=== PATIENT | male | born 1960 | race Caucasian/White ===

== ENCOUNTER 2017-06-05 14:16 | Emergency (ER) | payer OTHER ==
[2017-06-05] MEDS ORDERED: Diphtheria/Tetanus Toxoids,Adult (Td) 0.5 ML SDV ONE (14:30)
[2017-06-05] MEDS ORDERED: Diphtheria,Pertussis(Acell),Tetanus Vaccine 0.5 ML SDV inactive IM ONE (15:31)
--- NOTE | 2017-06-05 17:58 | EDM.PDOC ---
ED HPI GENERAL MEDICAL PROBLEM - General Chief Complaint: General Stated Complaint: FISH HOOK REMOVAL Time Seen by Provider: 06/05/17 15:30 Source of Information: Reports: Patient History Limitations: Reports: No Limitations - History of Present Illness INITIAL COMMENTS - FREE TEXT/NARRATIVE: Pt was ice fishing today. Caught a fish and was trying to pull the fish hook and the fish wiggled and the hook got stuck into his left index finger. Pt did try to pull the hook and could not get it out, hence came into emergency room. Mild pain in the finger. no excessive bleeding. Pt claims his last tetanus was 20 years ago. Onset: Today - Related Data Allergies Allergy/AdvReac Type Severity Reaction Status Date / Time No Known Allergies Allergy Verified 06/05/17 15:18 Home Meds: Home Meds . [Unable to Verify Home Med List] 06/05/17 [History] Past Medical History Cardiovascular History: Reports: High Cholesterol, Hypertension Gastrointestinal History: Reports: Other (See Below) Other Gastrointestinal History: Hernia - umbilical Endocrine/Metabolic History: Reports: Diabetes, Type II - Infectious Disease History Infectious Disease History: Reports: Chicken Pox Social & Family History - Family History Family Medical History: Noncontributory - Tobacco Use Smoking Status *Q: Former Smoker Years of Tobacco use: 15 Used Tobacco, but Quit: Yes Month Tobacco Last Used: 2006 - Caffeine Use Caffeine Use: Reports: Coffee, Tea - Recreational Drug Use Recreational Drug Use: No ED ROS GENERAL - Review of Systems Review Of Systems: See Below Constitutional: Reports: Fever, Chills Musculoskeletal: Reports: Hand Pain, Joint Pain Skin: Reports: Bruising, Rash Psychiatric: Reports: Agitation, Anxiety ED EXAM, GENERAL - Physical Exam Exam: See Below Exam Limited By: No Limitations General Appearance: Alert, WD/WN, No Apparent Distress Ears: Normal External Exam, Normal Canal, Hearing Grossly Normal, Normal TMs Ear Exam: Bilateral Ear: Auricle Normal, Canal Normal, TM normal Nose: Normal Inspection, Normal Mucosa, No Blood Throat/Mouth: Normal Inspection, Normal Lips, Normal Teeth, Normal Gums, Normal Oropharynx, Normal Voice, No Airway Compromise Head: Atraumatic, Normocephalic Neck: Normal Inspection, Supple, Non-Tender, Full Range of Motion Respiratory/Chest: No Respiratory Distress, Lungs Clear, Normal Breath Sounds, No Accessory Muscle Use, Chest Non-Tender Cardiovascular: Normal Peripheral Pulses, Regular Rate, Rhythm, No Edema, No Gallop, No JVD, No Murmur, No Rub Skin Exam: Warm, Intact, Other (Left index finger:There is a fish hook over the distal phalynf of the finger. no bleeding, mild pain with movement of the hook.) Course - Vital Signs Text/Narrative:: Pt reassured. I did removed the Fish hook under aseptic precaution under local anesthesia. Pt tolerated the procedure well. Pressure dressing applied. advsied to keep the wound clean and dry for 2 days. Simple daily antibiotic dressing. Infection precaution discussed. Also he did receive tetanus today.If the finger swell, painful and cannot move the finger, needs to be sen by his PCP [facility]. - Orders/Labs/Meds Orders: Active Orders 24 hr Category Date Time Status Vaccines to be Administered [RC] PER UNIT ROUTINE Care 06/05/17 15:31 Active Meds: Medications Discontinued Medications Generic Name Dose Route Start Last Admin Trade Name Freq PRN Reason Stop Dose Admin Diphtheria/Tetanus/Acell Pertussis 0.5 ml 06/05/17 15:31 Boostrix IM 06/05/17 15:32 .ONCE ONE Departure - Departure Time of Disposition: 15:55 Disposition: Home, Self-Care 01 Condition: Good Clinical Impression: Fish hook injury of finger of left hand - Discharge Information Referrals: PCP,None [Primary Care Provider] - - Problem List & Annotations (1) Fish hook injury of finger of left hand SNOMED Code(s): 72684713 Code(s): S69.92XA - UNSP INJURY OF LEFT WRIST, HAND AND FINGER(S), INIT ENCNTR Status: Acute Current Visit: Yes - Problem List Review Problem List Initiated/Reviewed/Updated: Yes - My Orders Last 24 Hours: My Active Orders 06/05/17 15:31 Vaccines to be Administered [RC] PER UNIT ROUTINE - Assessment/Plan Last 24 Hours: My Active Orders 06/05/17 15:31 Vaccines to be Administered [RC] PER UNIT ROUTINE Assessment:: Left index finger fish hook Plan: Pt reassured. I did removed the Fish hook under aseptic precaution under local anesthesia. Pt tolerated the procedure well. Pressure dressing applied. advsied to keep the wound clean and dry for 2 days. Simple daily antibiotic dressing. Infection precaution discussed. Also he did receive tetanus today.If the finger swell, painful and cannot move the finger, needs to be sen by his PCP [facility].
== END 2017-06-05 15:45 | disposition home or self-care (01) ==
LOC: LB.ED 14:16
DX: S60.451A Superficial foreign body of left index finger, initial encounter (principal); I10 Essential (primary) hypertension; E11.9 Type 2 diabetes mellitus without complications; Z87.891 Personal history of nicotine dependence; Z23 Encounter for immunization; W45.8XXA Other foreign body or object entering through skin, initial encounter
CPT/HCPCS: 90471; 90714; 99282-25